=== PATIENT | female | born 1980 | race Caucasian/White ===

== ENCOUNTER 2022-06-15 08:06 | Outpatient (CLI) | payer BC, SELFPAY ==
--- NOTE | 2022-06-15 08:20 | ECG_ITS ---
Measurements Intervals [place] Rate: 65 P: 55 ME: 201 QRS: 82 QRSD: 119 T: 46 QT: 430 QTc: 450 Interpretive Statements SINUS RHYTHM BORDERLINE ST-T WAVE ABNORMALITY- ANTEROLAT/INF LEADS BORDERLINE ECG NO PREVIOUS ECG AVAILABLE FOR COMPARISON Electronically Signed On 06-15-2022 8:42:41 CDT by Gee Johnson D.O.
[2022-06-15 08:44] LABS: Anion Gap 10 mmol/L (8-16); Blood Urea Nitrogen 11 mg/dL (7-17); Calcium 8.5 mg/dL (8.4-10.2); Carbon Dioxide 32 mmol/L (22-30); Chloride 98 mmol/L (98-107); Estimated Glomerular Filt Rate > 60; Glucose 96 mg/dL (65-110); Potassium 3.3 mmol/L (3.4-5.0); Sodium 140 mmol/L (137-145)
== END 2022-06-15 08:07 | disposition home or self-care (01) ==
PROVIDERS: Referring Provider Anesthesiology; Visit Provider Neurological Surgery
DX: M47.816 Spondylosis without myelopathy or radiculopathy, lumbar region (principal); Z79.899 Other long term (current) drug therapy; I10 Essential (primary) hypertension; Z01.818 Encounter for other preprocedural examination; R94.31 Abnormal electrocardiogram [ECG] [EKG]
CPT/HCPCS: 36415; 80048; 86850; 86900; 86901; 93005

== ENCOUNTER 2022-06-18 17:52 | Inpatient (IN) | payer BC, SELFPAY ==
[2022-06-13 12:10] VITALS: BMI 30.9
--- NOTE | 2022-06-13 12:17 | PC.NURSE ---
Report to the Outpatient Waiting Room, entrance under the green pavilion located off [facility], at time 9:00 on date 06/18/22. Planned Procedure Time: 11:00. Time changes happen often and if your time is changed the preop area will call you the afternoon before. - You and your visitor will be asked to self-screen and do not enter if you have any COVID symptoms. - We encourage only one visitor and NO visitors under age 16 are allowed at this time. Your visitor will receive communication by the phone number that is given day of service. - The patient visitor is requested to social distance or may leave the building when not with patient due to restrictions. - A mask is OPTIONAL within the hospital. Patients may have clear liquids (water, carbonated beverages, clear teas, apple juice) until 3 hours prior to surgery (8:00) with a maximum of 20 ounces. - No food from midnight until time of surgery Take the following medications with a SIP of water the morning of surgery: PROPRANOLOL, NORCO IF NEEDED Medications to discontinue per physician: N/A Date to take last dose: N/A Please no make-up, nail turkmen, hairspray, perfume, deodorant, or body powder the day of surgery. No jewelry (including any body piercings) or valuables the day of surgery, leave them at home. Please take a shower or bath the night before, or the morning of, surgery with an antibacterial soap. Wear comfortable, loose fitting clothing. - Jewelry must be removed prior to entering the operating room. Rings and piercings that are not removed may be cut off. - The hospital will not accept responsibility for valuables. - Please leave all valuables, including medications, at home the day of surgery. If you are going home after surgery, a licensed national flatbed truck driver must drive you home. - NO public transportation without another adult. - We recommend that an adult stay with you for 24 hours following discharge. - We also recommend that you do not drive, make important decision, drink alcoholic beverages, or take any drugs that were not prescribed by your health care provider for at least 24 hours after your discharge time. Follow any additional instructions given to you from your surgeon. If you or anyone in your household have experienced Covid symptoms in the past week, please notify your surgeon or the nurse liaison at the phone number below for possible testing. Telephone instructions given to PT - INGA ESTRADA and asked if any additional questions and then verbalized understanding. Patient advised to call surgeon office or pre surgery nurse liaison [phone] if any additional questions.
[2022-06-18] VITALS (20 sets, daily range): BP systolic 98–143; BP diastolic 52–81; PULSE 63–83; RESP 12–18; TEMP 36.5–36.8; O2SAT 96–100; BMI 30.4
--- NOTE | ~2022-06-18 | XR_ITS ---
EXAMINATION: XR fluoroscopy no charge DATE: 06/18/2022 12:10 DIRECTOR OF TAX SERVICES INDICATION: L3-4 posterior lumbar interbody fusion . TECHNIQUE: 3 fluoroscopic images of the lumbar spine were obtained during L3-4 posterior lumbar inter body fusion performed by the surgeon. I was not present in the operating room. Fluoroscopy exposure t howard was 6.8 seconds. Air Kerma 6.3303 mGy. DAP 0.1255 mGym2. COMPARISON: None FINDINGS: Initial image localizes the superior aspect of the L4-S1 posterior fusion hardware. L4-5 and L5-S1 in terbody devices, in good position. Additional fusion hardware over the sacrum likely fusing the sacro iliac joint or joints. Subsequent addition of pedicle screws into the L3 vertebral body, L3-4 interbo dy device which is in good position, and connection of the new pedicles screws to extended fusion cathy s. IMPRESSION: Fluoroscopic documentation of L3-4 posterior lumbar interbody fusion. Please refer to the operative n ote for complete procedural details . Reviewed, dictated and finalized at location K. CTOR OF TAX SERVICES IMPRESSION: Fluoroscopic documentation of L3-4 posterior lumbar interbody fusion. Please re susan to the operative note for complete procedural details .
[2022-06-18] MEDS: LACTATED RINGERS 1,000 ML 30 ML IV CONT ×3 (10:37→17:00)
--- NOTE | 2022-06-18 10:40 | SUR.PREOP ---
1040- Notified patient, Chichi and friend, Aliya procedure start time will be delayed. Patient and friend verbalized understanding.
--- NOTE | 2022-06-18 10:48 | P.PNAN_ITS ---
Anes - Initial Pre Proc Eval Procedure: Operation Date: 06/18/22 11:00 Proposed Procedures p L3-4 Posterior Lumbar Interbody Fusion - Elkin Rich MD Date/Time: 06/18/22 10:48 Surgeon: Elkin Rich MD Pre Op Diagnosis: lumbar spondylosis, lumbar stenosis Patient Data Age: 42 Gender: F Height: 1.6 m Weight: 78.05 kg Last Vital Signs Temp 36.5 C 06/18/22 09:10 Pulse 74 06/18/22 09:10 Resp 14 06/18/22 09:10 BP 136/63 06/18/22 09:10 Pulse Ox 99 06/18/22 09:10 O2 Del Method Room Air 06/18/22 09:10 Allergies Allergy/AdvReac Type Severity Reaction Status Date / Time lisinopril Allergy Rash Verified 06/18/22 09:26 pregabalin [From Lyrica] Allergy Rash Verified 06/18/22 09:26 adhesive tape AdvReac Blister Verified 06/18/22 09:26 tramadol AdvReac Vomiting Verified 06/18/22 09:26 Home Medications Medication Instructions Recorded Confirmed Type esomeprazole magnesium 40 mg 40 mg PO DAILY 06/13/22 06/13/22 History capsule,delayed release (Nexium) hydrochlorothiazide 12.5 mg tablet 12.5 mg PO DAILY 06/13/22 06/13/22 History hydrocodone 10 mg-acetaminophen 1 tablet PO QID 06/13/22 06/18/22 History 325 mg tablet propranolol 20 mg tablet 20 mg PO Q12H 06/13/22 06/18/22 History Patient hx anesthesia problems: none Family hx anesthesia problems: none Results Review: All pre-operative results and documents have been reviewed as part of the pre- operative evaluation. [facility] Past Medical History Medical History HTN (hypertension) Obesity Smoker Surgical History Surgical History (Updated 06/18/22 @ 10:49 by Cristobal Mckeon MD) History of lumbar fusion Social History Social History Smoking packs per day: 1 Smoking cigarettes per day: 20.0 Years smoked: 22 Smoking pack-years: 22.00 Smoking status: Current every day smoker Tobacco type: cigarettes Additional smoking assessment comments: CURRENTLY CUTTING BACK ON CIGARETTES - DOWN TO 15-18/DAY Alcohol intake: never Substance use: current Substance use type: marijuana Living arrangements: with family Spiritual care concerns: No Anes - Eval Final PreProcedure Day of Procedure 06/18/22 10:48 Patient weight: obese Heart: regular rate and rhythm Lungs: clear to auscultation Airway: Mallampati scale class II Neurological: alert and oriented Last oral intake: >/= 8 hours ASA classification: III Emergent: no Anesthetic plan: proceed Anesthesia type and monitoring: general ETT and standard monitoring Results Review: All pre-operative results and documents have been reviewed as part of the pre- operative evaluation. Informed Consent: The patient's anesthetic plan and its attendant risks and benefits were discussed with the patient/family/POA. Questions were solicited and answers provided to the satisfaction of the patient/family/POA.
--- NOTE | 2022-06-18 11:26 | PM.IMHP ---
H&P: HPI History of Present Illness Date/Time: 06/18/22 11:26 Chief Complaint: Back and leg pain, claudication Narrative: Chichi is a 42-year-old female with a junctional stenosis, spondylosis and listhesis who presents now for L3-4 posterior lumbar interbody fusion. She has not changed appreciably since we last saw her. She does not have specific muscle group weakness or dermatomal numbness. She is not having bowel or bladder incontinence. Review of Systems Review of Systems: Patient denies shortness of breath, cough, fever, chills, nausea, vomiting, weight loss, weight gain, chest pain, dysuria. She has back and leg pain as above and claudication. The review of systems is otherwise negative on 12 systems except as noted elsewhere. [facility] Past Medical History Medical History HTN (hypertension) Obesity Smoker Surgical History Surgical History History of lumbar fusion Social History Social History Smoking packs per day: 1 Smoking cigarettes per day: 20.0 Years smoked: 22 Smoking pack-years: 22.00 Smoking status: Current every day smoker Tobacco type: cigarettes Additional smoking assessment comments: CURRENTLY CUTTING BACK ON CIGARETTES - DOWN TO 15-18/DAY Alcohol intake: never Substance use: current Substance use type: marijuana Living arrangements: with family Spiritual care concerns: No Meds Home Medications and Allergies Home Medications Medication Instructions Recorded Confirmed Type esomeprazole magnesium 40 mg 40 mg PO DAILY 06/13/22 06/13/22 History capsule,delayed release (Nexium) hydrochlorothiazide 12.5 mg tablet 12.5 mg PO DAILY 06/13/22 06/13/22 History hydrocodone 10 mg-acetaminophen 1 tablet PO QID 06/13/22 06/18/22 History 325 mg tablet propranolol 20 mg tablet 20 mg PO Q12H 06/13/22 06/18/22 History Allergies Allergy/AdvReac Type Severity Reaction Status Date / Time lisinopril Allergy Rash Verified 06/18/22 09:26 pregabalin [From Lyrica] Allergy Rash Verified 06/18/22 09:26 adhesive tape AdvReac Blister Verified 06/18/22 09:26 tramadol AdvReac Vomiting Verified 06/18/22 09:26 Vital Signs Vital Signs - 24 hr 06/18/22 09:10 Temperature 97.7 F Pulse Rate 74 Respiratory Rate 14 Blood Pressure 136/63 Pulse Oximetry 99 Oxygen Delivery Room Air Exam Neuro: Other: Strength is 5/5 in all muscle groups of the bilateral lower extremities. Sensation is intact to light touch throughout the lower extremities. Regular rate and rhythm Clear to auscultation Assessment and Plan Assessment and plan (1) Lumbar stenosis with neurogenic claudication: Code(s): M48.062 - Spinal stenosis, lumbar region with neurogenic claudication Status: Acute (2) Spondylolisthesis of lumbar region: Code(s): M43.16 - Spondylolisthesis, lumbar region Status: Acute Plan Chichi is a 42-year-old female who presents for an L3-4 posterior lumbar interbody fusion for junctional issues. I described to her again that operation, its risks, potential benefits, the operative and postoperative course in detail and answered all her questions personally. She indicates understanding and elects to proceed with the operation.
--- NOTE | 2022-06-18 11:29 | WPDHPUPDATE1 ---
History and Physical Update Update Date/Time: 06/18/22 11:29 History and Physical has been reviewed, including an updated exam of the patient. There are NO changes in the patient's condition. Risks, benefits, and alternatives have been discussed and questions answered. Patient agrees to proceed with procedure.
[2022-06-18] MEDS: ceFAZolin 2 GM/D5W 50 ML 2 GM/50 ML BAG IVPB (11:57)
[2022-06-18] MEDS: BUPIVACAINE/EPINEPHRINE 0.25% 50 ML VIAL INFILTRATE (12:48)
--- NOTE | 2022-06-18 14:29 | W.PM.PROC2 ---
Procedure Note - Detailed Date of Procedure 06/18/22 Pre-op Diagnosis lumbar spondylosis, lumbar stenosis, retrolisthesis Post-op Diagnosis Same Procedure Performed L3-4 complete laminectomy and bilateral facetectomy Kesha Head Frye osteotomy, L 3 4 complete diskectomy and interbody arthrodesis utilizing titanium (Orthofix) interbody device and local autograft, L3-4 pedicle screw instrumentation with removal and replacement of posterior instrumentation L4-S1. Surgeon Elkin Rich MD [employer] Sean Anesthesia General Indications Chichi is a 42-year-old female with back and leg pain related to spondylosis, retrolisthesis and stenosis at L3-4 above previous L4-S1 operation the presents now for posterior lumbar interbody fusion at L3-4. Description of Procedure Chichi was brought to the operating room in the supine position, was sedated, intubated and placed under general anesthesia in routine fashion. She was then turned into the prone position on a Berry frame. The area of operation on her back was examined, marked for incision, prepped and draped in routine sterile incision marked L3 through S1 spinous processes in the midline. This area was injected with 0.5% lidocaine with [id number] epinephrine. Intravenous antibiotics given prior to incision. Incision was made with a 10 blade scalpel down to the lumbodorsal fascia. A subperiosteal dissection of the muscle and soft tissue away from the spinous process and lamina at L3 was performed with a subperiosteal elevator and Bovie cautery. A verifying x-rays obtained to verify the level of operation. The L3 spinous process was removed with a Angel rongeur. Kerrison punches, curved curette and Leksell rongeur were used to remove lamina in the midline until the soft contents of the canal were encountered. A Midas Schuyler drill was used to resect pars bilaterally at L3. The inferior articular process and facet of L3 could be removed thus accomplishing the osteotomy. These +spinous process were stripped free of soft tissue and morselized for later use as interbody autograft. Kerrison punches and curved curettes were used to define a plane with the dura and removed bone and ligament flush with the pedicle and through the foramina widely decompressing the exiting nerve roots. With the thecal sac retracted and protected the disc space was entered bilaterally using an 11 blade scalpel. Scrapers a very sizes, curettes of various configurations, a pituitary rongeur and a rasp were used to remove as much cartilaginous endplate and disc material as possible down to bleeding cortical flat surfaces on the opposing bones. The disc space was incised and 10 mm titanium Orthofix interbody devices were chosen and filled with local autograft bone. The disc space was likewise filled with local autograft bone medially and anteriorly. The interbody devices were then placed with 2-3 mm countersink within the disc space bilaterally. Pedicle screw instrumentation was then performed at L3 by observing and palpating the pedicle while a hole was made and superior articular process above the pedicle using a Midas Schuyler drill. The pedicle was then cannulated with a pedicle probe, checked for continuity with the ball probe, tapped with a 5.5 mm tap and a 6.5 x 50 mm screw was placed into each L3 pedicle. The caps were removed at L4 to the sacrum in the rods in the screw caps also removed. A longer 80 mm cathy was placed into the side through the screw heads. These were secured in position using the caps for that purpose. Distraction was placed over the C3-4 level to achieve a reduction of the lordosis and retrolisthesis at that level. This was confirmed radiographically. All of the caps were then definitively tightened with a torque and anti torque device. The wound was then copiously irrigated with bacitracin irrigation all bleeding was stopped with bipolar and Bovie cautery and Gelfoam thrombin powder. Wound was then closed in
[2022-06-18] MEDS: fentaNYL CITRATE INJ (*CRX) 100 MCG/2 ML VIAL 25 MCG IV PUSH ×8 (14:50→15:30)
[2022-06-18] MEDS: HYDROmorphone HCL INJ (*CRX) 1 MG/ML SYR 0.5 MG IV PUSH ×7 (15:55→23:33)
--- NOTE | 2022-06-18 18:18 | ADMGEN ---
This patient, Chicih Delgado, was admitted to Medical Room 348-01. Patient/family oriented to hospital policies and general routines including ID bracelet, bed and alarms, visiting hours, pain management, procedures, bathroom and other care routines, personal items, smoking policy, room service/diet, and visiting hours. Information on how to activate the Rapid Response Team has been discussed. Patient/Family are encouraged to report perceived risks to care and to ask questions if they do not understand what they are told or what they should do.
[2022-06-18] MEDS: KCL 20 MEQ/D5/0.45% SOD CHL 1,000 ML 100 ML IV CONT (18:35)
[2022-06-18] MEDS: DOCUSATE SODIUM 100 MG CAPSULE PO (20:22)
[2022-06-18] MEDS: PROPRANOLOL HCL 20 MG TABLET PO (20:22)
[2022-06-18] MEDS: HYDROcodone/acetaminophen (*CRX) 10-325 MG TABLET 1 TAB PO (20:26)
[2022-06-19] VITALS (7 sets, daily range): BP systolic 112–124; BP diastolic 54–59; PULSE 68–83; RESP 16–18; TEMP 36.5–36.8; O2SAT 97–100
[2022-06-19] MEDS: HYDROmorphone HCL INJ (*CRX) 1 MG/ML SYR 0.5 MG IV PUSH ×5 (02:23→17:08)
[2022-06-19] MEDS: HYDROcodone/acetaminophen (*CRX) 10-325 MG TABLET 1 TAB PO ×3 (02:24→14:27)
[2022-06-19] MEDS: PANTOPRAZOLE 40 MG TABLET PO (09:00)
[2022-06-19] MEDS: DOCUSATE SODIUM 100 MG CAPSULE PO (09:00)
[2022-06-19] MEDS: PROPRANOLOL HCL 20 MG TABLET PO (09:00)
[2022-06-19] MEDS: hydroCHLOROthiazide 12.5 MG CAPSULE PO (09:00)
[2022-06-19] MEDS: CYCLOBENZAPRINE HCL 10 MG TABLET PO (10:03)
--- NOTE | 2022-06-19 13:00 | WPDANESPN ---
Anes - Prog Note Post-Op Date/Time: 06/19/22 13:00 Cardiovascular status: normal Respiratory status: normal Airway patency: baseline Mental status: baseline Post-Op hydration status: normal Vital Signs: Last Vital Signs Temp 36.5 C 06/19/22 10:27 Pulse 68 06/19/22 10:27 Resp 18 06/19/22 10:27 BP 112/54 L 06/19/22 10:27 Pulse Ox 100 06/19/22 10:27 O2 Del Method Room Air 06/19/22 08:37 O2 Flow Rate 6 06/18/22 15:05 Pain Score (VAS): 5-6 Back feels stiff not really pain I/O: Intake & Output 06/18/22 06/19/22 06/19/22 23:59 07:59 15:59 Intake Total 1550 50 240 Output Total 900 70 Balance 1550 -850 170 Post-procedural complaints: none Patient Feedback: Patient satisfied with anesthetic care. Patient dressed, sitting up in a chair. She stated she feels great other than her back feels stiff. Not really a painful feeling she said, just her back feels very tight and stiff.
== END 2022-06-19 19:28 | disposition home or self-care (01) | DRG 460 ==
LOC: ANH3MED 18:01
PROVIDERS: Admitting Provider Neurological Surgery; PCP Internal Medicine; Visit Provider Neurological Surgery
PROC: 0SG00AJ Fusion of Lumbar Vertebral Joint with Interbody Fusion Device, Posterior Approach, Anterior Column, Open Approach (ICD-10-PCS; CPT 22612; principal; 2022-06-18 11:00)
DX: M48.062 Spinal stenosis, lumbar region with neurogenic claudication (principal); M47.816 Spondylosis without myelopathy or radiculopathy, lumbar region; M43.16 Spondylolisthesis, lumbar region; F17.210 Nicotine dependence, cigarettes, uncomplicated; I10 Essential (primary) hypertension; E66.9 Obesity, unspecified; Z68.30 Body mass index [BMI] 30.0-30.9, adult
CPT/HCPCS: 97161; 97165; 99199; A9270; C1713; J0330; J0690; J1100; J1170; J2250; J2370; J2405; J2704; J3010; J3480; J7120